=== PATIENT | male | born 2000 | race American Indian/Alaskan Native ===

== ENCOUNTER 2021-11-08 14:43 | Emergency (ER) | payer SELFPAY ==
[2021-11-08 14:50] VITALS: BP 117/59
[2021-11-08] MEDS ORDERED: IBUPROFEN 600 MG TAB PO ONE (20:55)
[2021-11-08] MEDS ORDERED: TETANUS,DIPH,PERTUSS(ACELL) VACCINE 0.5 ML SYRINGE IM ONE (20:55)
[2021-11-08] MEDS ORDERED: HYDROcodone/ACETAMINOPHEN 5-325 MG TAB PO ONE (20:55)
[2021-11-08] MEDS ORDERED: ONDANSETRON 4 MG ODT TAB PO ONE (20:55)
[2021-11-08] MEDS ORDERED: LIDOCAINE (1%) 10 MG/1 ML VIAL 20 ML MDV INFILTRATI ONE (20:55)
--- NOTE | 2021-11-08 20:56 | XRay Report ---
. RIGHT HAND 3 VIEW(S) INDICATION / CLINICAL INFORMATION: animal bite COMPARISON: None available. FINDINGS: BONES / JOINT(S): Comminuted intra-articular fracture of the base of the proximal phalanx of the firs t digit (Power fracture). No significant arthritis. SOFT TISSUES: No significant abnormality. ADDITIONAL FINDINGS: None. Signer Name: Fernie Bustillos DO Signed: 11/08/2021 8:52 PM Workstation Name: [id number]
--- NOTE | 2021-11-08 21:28 | Emergency Department Report ---
ED Animal Bite HPI - General Chief Complaint: Animal Bite Stated Complaint: DOG BITE SEVERAL PLACES ON BODY Source: patient Mode of arrival: Ambulatory Limitations: No Limitations - History of Present Illness Initial Comments: Patient is a 21-year-old -[place] male with no past medical history presents to the ED with complaint of acute onset persistent dorsal right hand pain due to bleeding laceration wound after being bitten by a dog that he met at a restaurant 8 hours ago. Patient states that he was a restaurant when a customer. In the restaurant with a pitbull dog and he tried to pet the dog which attacked him and bit him on his right hand, resulting in deep extensive laceration on his dorsal right hand. Patient states that in the process of twisting his hand out of the dog's mouth, he also sustained a right thumb pain and swelling with limited range of motion. Patient states that he is not up-to-date with tetanus vaccinations. Patient also states that the online marketing specialist of the dog is known although the vaccination status of the dog is unknown. Patient denies dizziness, syncope, fall, numbness and tingling or weakness of right hand, chest pain or shortness of breath, nausea and vomiting, head or neck injuries, nausea and vomiting. MD Complaint: animal bite (dorsal right hand pain, puncture wound), animal- related injury (dog bite of right hand), other (right thumb pain and swelling) -: Sudden, hour(s) (8) Location: other (right hand) Right: Hand (dorsal right hand puncture wound; right thumb pain, swelling) Animal: dog Animal Control Notified: No Description: household pet, immunizations unknown, appeared well Mechanism: bite, scratch, contact with mucous membr Pain Description: sharp, constant Severity scale (0 -10): 8 Context: playing with animal, provoked Associated Symptoms: bleeding. denies: erythema, discharge from wound, fever, chills, rash, loss of consciousness, cough, headache, diaphoresis, shortness of breath Treatments Prior to Arrival: wound dressing(s) - Related Data Patient Tetanus UTD: No (given tetanus during visit) Previous Rx's Medication Instructions Recorded Last Taken Type Amoxicillin/K Clav Tab [Augmentin 1 tab PO Q12HR #20 tab 11/08/21 Unknown Rx 875 mg] Ibuprofen [Motrin] 600 mg PO Q8H PRN #30 tablet 11/08/21 Unknown Rx traMADoL [Ultram] 50 mg PO Q6HR PRN #12 tablet 11/08/21 Unknown Rx Allergies Allergy/AdvReac Type Severity Reaction Status Date / Time No Known Allergies Allergy Unverified 11/08/21 14:46 ED Review of Systems ROS: Stated complaint: DOG BITE SEVERAL PLACES ON BODY Other details as noted in HPI Constitutional: denies: chills, fever Eyes: denies: eye pain, eye discharge, vision change ENT: denies: ear pain, throat pain Respiratory: denies: cough, shortness of breath, wheezing Cardiovascular: denies: chest pain, palpitations Endocrine: no symptoms reported Gastrointestinal: denies: abdominal pain, nausea, diarrhea Genitourinary: denies: urgency, dysuria Musculoskeletal: arthralgia (right thumb pain and swelling), other (right hand pain due to a bleeding dorsal right hand puncture wound). denies: back pain, joint swelling Skin: other (Bleeding painful dorsal right hand puncture wound). denies: rash, lesions, change in color Neurological: denies: headache, weakness, paresthesias Psychiatric: denies: anxiety, depression Hematological/Lymphatic: denies: easy bleeding, easy bruising ED Past Medical Hx - Past Medical History Previous Medical History?: No - Surgical History Past Surgical History?: No Additional Surgical History: left arm - Medications Home Medications: Home Medications Medication Instructions Recorded Confirmed Last Taken Type Amoxicillin/K Clav Tab [Augmentin 1 tab PO Q12HR #20 tab 11/08/21 Unknown Rx 875 mg] Ibuprofen [Motrin] 600 mg PO Q8H PRN #30 tablet 11/08/21 Unknown Rx traMADoL [Ultram] 50 mg PO Q6HR PRN #12 tablet 11/08/21 Unknown Rx ED Physical Exam - General Limitations: No Limitations General appearance: alert, in no apparent distress - Head Head exam: Present: atraumatic, normocephalic, normal inspection - Eye Eye exam: Present: normal appearance, PERRL, EOMI Pupils: Present: normal accommodation - ENT ENT exam: Present: normal exam, normal orophraynx, mucous membranes moist, TM's normal bilaterally, normal external ear exam - Neck Neck exam: Present: normal inspection, full ROM. Absent: tenderness - Respiratory Respiratory exam: Present: normal lung sounds bilaterally. Absent: respiratory distress, wheezes, rales, rhonchi, chest wall tenderness, accessory muscle use, decreased breath sounds, prolonged expiratory - Cardiovascular Cardiovascular Exam: Present: regular rate, normal rhythm, normal heart sounds. Absent: systolic murmur, diastolic murmur, rubs, gallop - GI/Abdominal GI/Abdominal exam: Present: soft, normal bowel sounds. Absent: tenderness, guarding, rebound, hyperactive bowel sounds, hypoactive bowel sounds, organomegaly - Extremities Exam Extremities exam: Present: normal inspection, tenderness (Palpable right hand right thumb tenderness due to a dorsal right hand 3 cm laceration; thumb tenderness and mild swelling), normal capillary refill, joint swelling. Absent: pedal edema, calf tenderness - Back Exam Back exam: Present: normal inspection, full ROM. Absent: tenderness, CVA tenderness (R), CVA tenderness (L), muscle spasm, paraspinal tenderness, vertebral tenderness - Neurological Exam Neurological exam: Present: alert, oriented X3, CN II-XII intact, normal gait, reflexes normal - Psychiatric Psychiatric exam: Present: normal affect, normal mood - Skin Skin exam: Present: warm, dry, intact, normal color, other (Bleeding 3 cm laceration of dorsal right hand with tenderness). Absent: rash ED Course Vital Signs 11/08/21 14:47 Temperature 98.4 F Pulse Rate 67 Respiratory 20 Rate Blood Pressure 117/59 [Right] O2 Sat by Pulse 100 Oximetry - Laceration /Wound Repair Right Dorsal Hand Wound Location: upper extremity (dorsal right hand) Wound Length (cm): 3 Wound's Depth, Shape: superficial, linear Wound Explored: contaminated Irrigated w/ Saline (ccs): 300 Betadine Prep?: Yes Anesthesia: 1% Lidocaine Volume Anesthetic (ccs): 7 Wound Debrided: extensive Wound Repaired With: sutures Suture Size/Type: 3:0, proline Number of Sutures: 6 Layer Closure?: No Sterile Dressing Applied?: Yes Progress: The area was cleaned extensively with normal saline and Betadine solutions. 1% lidocaine solution was used to infiltrate the area for local anesthesia. When anesthesia was fully achieved, the wound was sutured loosely with Prolene 3-0 sutures for a total of 6 sutures. The wound was then cleaned with again with normal saline and dressed appropriately with 4 x 4 gauze and Kerlix gauzes. Patient tolerated the procedure well. Patient was discharged home on pain medications and prophylactic antibiotics for dog bites and was advised return to the ED immediately if symptoms get worse. Patient was also advised to follow- up with his primary care physician in 7 to 10 days for reevaluation. Patient was otherwise advised return to the ED or to his primary care physician in 12 to 14 days for suture removal. Critical care attestation.: If time is entered above; I have spent that time in minutes in the direct care of this critically ill patient, excluding procedure time. ED Disposition Clinical Impression: Puncture wound of right hand without complication Qualifiers: Encounter type: initial encounter Qualified Code(s): S61.431A - Puncture wound without foreign body of right hand, initial encounter Dog bite of right hand without complication Qualifiers: Encounter type: initial encounter Qualified Code(s): S61.451A - Open bite of right hand, initial encounter Displaced fracture of proximal phalanx of right thumb Qualifiers: Encounter type: initial encounter Fracture type: closed Qualified Code(s): S62.511A - Displaced fracture of proximal phalanx of right thumb, initial encounter for closed fracture Laceration of right hand without complication, excluding fingers Qualifiers: Encounter type: initial encounter Qualified Code(s): S61.411A - Laceration without foreign body of right hand, initial encounter Disposition: 01 HOME / SELF CARE / HOMELESS Is pt being admited?: No Does the pt Need Aspirin: No Condition: Stable Instructions: Animal Bite, Adult, [id number], Puncture Wound, [id number], Finger Fracture, Adult, [id number], Cast or Splint Care, Adult, [id number], Wound Infection, [id number], Sutures, Sukhjinder, or Adhesive Wound Closure, [id number], Sutured Wound Care, [id number] Additional Instructions: Take medication with food, drink plenty of fluids and follow-up with the orthopedic surgeon Dr. Harper in 2 to 3 days for reevaluation. Contact Dr. Harper's office first thing in the morning on Tuesday, November 09, 2021 to schedule a follow-up appointment. Return to the ED immediately if symptoms get worse. Otherwise return to the ED in 12 to 14 days for suture removal. Prescriptions: Amoxicillin/K Clav Tab [Augmentin 875 mg] 1 tab PO Q12HR #20 tab Ibuprofen [Motrin] 600 mg PO Q8H PRN #30 tablet PRN Reason: Pain traMADoL [Ultram] 50 mg PO Q6HR PRN #12 tablet PRN Reason: Pain Referrals: NANETTE HARPER MD [Staff Physician] - 3-5 Days Forms: Work/School Release Form(ED) Time of Disposition: 21:35 Print Language: GREENLANDIC
== END 2021-11-08 22:44 | disposition home or self-care (01) ==
LOC: ED 14:43
DX: S61.411A Laceration without foreign body of right hand, initial encounter (principal); S62.511A Displaced fracture of proximal phalanx of right thumb, initial encounter for closed fracture; S61.431A Puncture wound without foreign body of right hand, initial encounter; S61.451A Open bite of right hand, initial encounter; S62.91XA Unspecified fracture of right hand, initial encounter for closed fracture; Z79.899 Other long term (current) drug therapy; W54.0XXA Bitten by dog, initial encounter; Y93.89 Activity, other specified; Y92.89 Other specified places as the place of occurrence of the external cause; Y99.8 Other external cause status
CPT/HCPCS: 90471; 90715; 99283; J3490; Q0162